=== PATIENT | male | born 1995 | race Two or more races ===

== ENCOUNTER 2020-02-15 14:00 | Emergency (ER) | payer SELFPAY ==
[~2020-02-15] VITALS: Ht 170.2 cm; Wt 59.9 kg
[2020-02-15] MEDS ORDERED: LORazepam 1MG TABLET PO ONE (14:30)
[2020-02-15 14:39] LABS: BASOPHILS # (AUTO) 0.04 x10^3/uL (0-0.1); BASOPHILS % (AUTO) 1 % (0-1); EOSINOPHILS # (AUTO) 0.05 x10^3/uL (0-0.4); EOSINOPHILS % (AUTO) 1 % (1-7); LYMPHOCYTES # (AUTO) 2.14 x10^3/uL (1-3.4); LYMPHOCYTES % (AUTO) 26 % (22-44); MD NO; MEAN CORPUSCULAR HEMOGLOBIN 31.4 pg (27.5-34.5); MEAN CORPUSCULAR VOLUME 92.1 fL (81-97); MEAN PLATELET VOLUME 6.9 fL (7.4-10.4); MONOCYTES # (AUTO) 0.63 x10^3/uL (0.2-0.8); MONOCYTES % (AUTO) 8 % (2-9); NEUTROPHILS % (AUTO) 65 % (42-75); PLATELET COUNT 386 x10^3/uL (130-400); RED BLOOD COUNT 5.49 x10^6/uL (4.38-5.82); RED CELL DISTRIBUTION WIDTH 12.6 % (9.4-14.8)
[2020-02-15] MEDS ORDERED: LORazepam 1MG TABLET ONE (14:39)
[2020-02-15] MEDS ORDERED: DIAZEPAM 5 MG TABLET ONE (14:49)
[2020-02-15 14:51] LABS: ALANINE AMINOTRANSFERASE 18 U/L (12-78); ALBUMIN 4.6 g/dL (3.4-5.0); ANION GAP 11 mmol/L (5-15); CALCIUM 8.8 mg/dL (8.5-10.1); CHLORIDE 111 mmol/L (98-107); CREATININE 1.12 mg/dL (0.7-1.3)
--- NOTE | 2020-02-15 14:58 | NUR ---
PT STATES ANXIETY ATTACK, STATES HAS HAPPENED MULTIPLE TIMES OVER THIS LAST WEEKEND. PT DENIES ANY SI. STATES HAS PSYCH DR APPOINTMENT LATER THIS WEEK. PT MEDICATED PER ORDERS FOR ANXIETY. PT ON MONITORS, VSS. CONT TO MONITOR.
[2020-02-15] MEDS ORDERED: POTASSIUM CHLORIDE 20 MEQ TAB.ER.PRT PO ONE (15:00)
[2020-02-15] MEDS ORDERED: DIAZEPAM 5 MG TABLET PO ONE (15:00)
[2020-02-15 15:01] LABS: ALKALINE PHOSPHATASE 82 U/L (45-117); BILIRUBIN,TOTAL 2.8 mg/dL (0.2-1.0); FREE T4 (FREE THYROXINE) 1.43 ng/dL (0.76-1.46); TOTAL PROTEIN 8.5 g/dL (6.4-8.2)
[2020-02-15] MEDS ORDERED: POTASSIUM CHLORIDE 20 MEQ TAB.ER.PRT ONE (15:16)
--- NOTE | 2020-02-15 15:28 | NUR ---
PT MEDICATED PER ORDERS. JEWEL CORTES AT [facility] TO DISCUSS POC WITH PT, PT VERBALIZED UNDERSTANDING. PT REMAINS ON MONITORS, VSS. CONT TO MONITOR.
[2020-02-15] MEDS ORDERED: SODIUM CHLORIDE 0.9% 1,000ML IVBOLUS ONE (15:30)
--- NOTE | 2020-02-15 15:46 | NUR ---
PT IV STARTED, IVF INFUSING. PT REMAINS ON MONITORS, VSS. CONT TO MONITOR.
--- NOTE | 2020-02-15 15:55 | NUR ---
PT GIVEN MEAL TRAY.
--- NOTE | 2020-02-15 16:36 | NUR ---
PT OK FOR D/C PER ER PAJonasC. PT CALM AND COOPERATIVE, STATES HE "FEELS BETTER." PT VERBALIZED UNDERSTANDING OF D/C INSTRUCTIONS. PT WITH STEADY GAIT UPON D/C. HAS ALL OWN BELONGINGS.
[2020-02-15 16:37] VITALS: BP 121/67
== END 2020-02-15 16:39 | disposition home or self-care (01) ==
LOC: ED 14:50
DX: F41.1 Generalized anxiety disorder (principal); R06.4 Hyperventilation; E86.0 Dehydration; E87.6 Hypokalemia; R07.9 Chest pain, unspecified
CPT/HCPCS: 36415; 71045; 80053; 84439; 84443; 85025; 93005; 96360; 99285; J7030